=== PATIENT | male | born 2000 | race Caucasian/White ===

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

== ENCOUNTER 2018-09-10 18:36 | Emergency (ER) | payer OTHER, SELFPAY ==
--- NOTE | 2018-09-10 23:13 | RAD ---
RIGHT HAND THREE VIEWS: 09/10/2018 FINDINGS: No acute fracture is appreciated. There does appear to be an old healed fracture of the fifth metaca rpal, but I cannot confirm a new injury to this bone at this time. The remainder of the hand and wri st appear intact. IMPRESSION: Presumed old injury to the fifth metacarpal. POS: HOME
== END 2018-09-10 19:14 | disposition home or self-care (01) ==
LOC: BURERS 18:36
DX: S62.306D Unspecified fracture of fifth metacarpal bone, right hand, subsequent encounter for fracture with routine healing (principal); W55.32XA Struck by other hoof stock, initial encounter
CPT/HCPCS: 29125